=== PATIENT | female | born 1945 | race Caucasian/White ===

== ENCOUNTER 2019-02-21 11:39 | Emergency (ER) | payer MEDICARE, BC ==
[2019-02-21] MEDS ORDERED: Meclizine TAB* 12.5 MG PO ONE (11:51)
--- NOTE | 2019-02-21 12:05 | UC ---
Dizzy HPI HPI Summary: Patient is a 73-year-old female who presents to the urgent care with chief complaint of having dizziness. She reports that the dizziness is like the room is spinning. The patient reports that the symptoms worsen when she gets up from bed, or ambulates and improves when she lays back in bed and closes her eyes. She has no history of vertigo. The patient started a couple days ago which lasted for a couple hours and resolved. This morning she developed the same symptoms when she got up but he has not subsided. She denies any nausea, denies any headache or blurred vision, denies any chest pain shortness of breath or palpitations. Patient denies any diaphoresis but positive dizziness. She has no other complaints. She is due history of present upper respiratory tract infections. She has past medical history significant for a left bundle- branch block. - History Of Current Complaint Stated Complaint: DIZZY Time Seen by Provider: 02/21/19 11:43 Hx Obtained From: Patient Hx From Patient Unobtainable Due To: Dementia Timing: Intermittent Episode Lasting Severity Initially: Mild Severity Currently: Moderate - Allergies/Home Medications Allergies/Adverse Reactions: Allergies Allergy/AdvReac Type Severity Reaction Status Date / Time clindamycin Allergy See Comment Verified 02/21/19 11:54 PMH/Surg Hx/FS Hx/Imm Hx Previously Healthy: Yes Cardiovascular History: Hypertension - Surgical History Surgical History: Yes Surgery Procedure, Year, and Place: hysterectomy, breast bx - Family History Known Family History: Positive: None, Non-Contributory - Social History Alcohol Use: Rare Substance Use Type: None Smoking Status (MU): Never Smoked Tobacco Review of Systems All Other Systems Reviewed And Are Negative: Yes Constitutional: Positive: Negative Skin: Positive: Negative Eyes: Positive: Negative ENT: Positive: Negative Respiratory: Positive: Negative Cardiovascular: Positive: Palpitations Gastrointestinal: Positive: Negative Genitourinary: Positive: Negative Motor: Positive: Negative Neurovascular: Positive: Negative Musculoskeletal: Positive: Negative Neurological: Positive: Other - Dizziness Psychological: Positive: Negative Is Patient Immunocompromised?: No Physical Exam - Summary Physical Exam Summary: VITAL SIGNS: Reviewed. GENERAL: Patient is a well developed and nourished female who is lying comfortably in the stretcher. Patient is not in any acute respiratory distress. HEAD AND FACE: No signs of trauma. No ecchymosis, hematomas or skull depressions. No sinus tenderness. EYES: PERRLA, EOMI x 2, No injected conjunctiva, no nystagmus. EARS: Hearing grossly intact. Ear canals and tympanic membranes are within normal limits. MOUTH: Oropharynx within normal limits. NECK: Supple, trachea is midline, no adenopathy, no JVD, no carotid bruit, no c- spine tenderness, neck with full ROM. CHEST: Symmetric, no tenderness at palpation LUNGS: Clear to auscultation bilaterally. No wheezing or crackles. CVS: Regular rate and rhythm, S1 and S2 present, no murmurs or gallops appreciated. ABDOMEN: Soft, non-tender. No signs of distention. No rebound no guarding, and no masses palpated. Bowel sounds are normal. EXTREMITIES: FROM in all major joints, no edema, no cyanosis or clubbing. NEURO: Alert and oriented x 3. No acute neurological deficits. Speech is normal and follows commands. SKIN: Dry and warm Triage Information Reviewed: Yes Appearance: Well-Appearing Vital Signs Reviewed: Yes Diagnostics - EKG Cardiac Rate: NL Cardiac Rhythm: Sinus: Normal Summary of EKG Findings: Sinus rhythm at 70 bpm. positive left bundle branch block. Dizzy Course/Dx - Course Course Of Treatment: In the urgent care course I believe that the patient has vertigo. Therefore the patient was given meclizine 50 mg by mouth. Head CT impression: No acute intracranial pathology. After the patient was given the meclizine 50 minutes by mouth, patient reports that his symptoms have significantly improved. The patient was ambulated around the urgent care and she had good steady walk, she didn't have any ataxia. Repeated neurological exam: Patient is alert and oriented 3 without any acute neurological focal deficits. I repeated the NIH score twice 50 minutes apart and still 0. GCS is 15. Patient has history of left bundle-branch block. Therefore I believe that the patient has a benign positional vertigo therefore she will be discharged home with follow-up with PCP. However, the patient was given specific instructions if she develops any slurred speech, lethargy, any LOWER EXTREMITY WEAKNESS, ANY numbness, tingling, or any other symptom the patient she'll immediately called 911 and go to the nearest emergency department. Patient understands and agrees. - Differential Dx/Diagnosis Differential Diagnosis/HQI/PQRI: Benign Paroxysmal Positional Vertigo Provider Diagnosis: Benign positional vertigo Discharge - Sign-Out/Discharge Documenting (check all that apply): Patient Departure All imaging exams completed and their final reports reviewed: Yes - Discharge Plan Condition: Improved Disposition: HOME Prescriptions: Meclizine TAB* [Antivert 12.5 TAB*] 25 mg PO TID PRN #30 tab PRN Reason: Dizziness Patient Education Materials: Benign Paroxysmal Positional Vertigo (ED) Referrals: Benita Narvaez MD [Primary Care Provider] - Additional Instructions: Take medications as instructed Increase your fluid intake F/U with PCP in the next 2-3 days Return to the UC if symptoms worsen - Billing Disposition and Condition Condition: IMPROVED Disposition: Home
[2019-02-21 12:46] VITALS: BP 159/80
== END 2019-02-21 13:02 | disposition home or self-care (01) ==
LOC: UCEAST 11:39
DX: H81.10 Benign paroxysmal vertigo, unspecified ear (principal); I10 Essential (primary) hypertension
CPT/HCPCS: 70450; 93005; 99212; A9270-GY; G0463